=== PATIENT | female | born 1955 | race Caucasian/White ===

== ENCOUNTER 2017-11-02 19:14 | Emergency (ER) | payer OTHER, SELFPAY ==
[2017-11-02 19:16] VITALS: BP 142/69; PULSE 86; RESP 15; TEMP 37.2; O2SAT 99; BMI 25.6
--- NOTE | 2017-11-02 20:04 | CT_ITS ---
STUDY: CT ABDOMEN AND PELVIS WITHOUT CONTRAST REASON FOR EXAM: Female, 62 years old. Right flank pain for weeks. RADIATION DOSAGE (If Supplied By Facility): CTDIvol = ( 6.67 ) mGy, DLP = ( 299.88 ) mGycm TECHNIQUE: Transaxial images were obtained from the dome of the diaphragm to the symphysis pubis without oral contrast, and without intravenous contrast. Sagittal and coronal images were reconstructed. Individualized dose optimization techniques were used for this CT. COMPARISON: None. FINDINGS: The visualized lung bases are unremarkable. The visualized portions of the heart are within normal limits. Subcentimeter cyst of the medial superior right liver. Otherwise normal liver. There are surgical clips in the gallbladder fossa consistent with a prior cholecystectomy. Normal spleen. Normal pancreas. Mild compensatory dilatation of the common bile duct without visualized filling defect. Normal bilateral adrenal glands. Normal right kidney without hydronephrosis, renal or ureteral stones. Normal left kidney without hydronephrosis, renal, ureteral or bladder stones. Normal visualized stomach. Normal small intestine. Normal colon. The appendix is visualized and appears normal. Normal abdominal aorta. Normal inferior vena cava. Normal retroperitoneum. Nondistended urinary bladder. Negative for a discernible pelvic mass or free fluid of the pelvis. Normal abdominal wall. Normal osseous structures. CT/Abdomen/Pelvis without Cont IMPRESSION: Normal unenhanced CT of the abdomen and pelvis. Electronically Signed: Mini Javier MD at 20:42 EST , Service support ,
[2017-11-02 20:13] LABS: Absolute Lymphocyte Count 2.44 X10^3/ul (0.83-4.51); Absolute Neutrophil Count 4.4 X10^3/uL (2.0-7.7); Basophil# 0.02 X10^3/uL; Basophil% 0.3 % (0-1); Eosinophil# 0.02 X10^3/uL; Eosinophils% 0.3 % (0-5); Hematocrit 38.1 % (37-47); Hemoglobin 12.4 g/dl (12.0-15.0); Lymphocyte # 2.44 X10^3/ul (4.0); Lymphocyte % 31.2 % (19-41); Mean Corp Hgb Conc 32.5 g/gl (32-36); Mean Corpuscular Hgb 29.6 pg (27.0-32.0); Mean Corpuscular Volume 90.9 fL (81-99); Mean Platelet Vol. 11.6 fl (6.2-12.0); Monocyte# 0.89 X10^3/uL; Monocyte% 11.4 % (0-10); Neutrophil # 4.43 X10^3/uL (2.7-7.7); Neutrophil % 56.7 % (47-70); Platelet Count 277 K/mm3 (150-450); RBC Distribution Width CV 13.6 % (11.6-14.6); RBC Distribution Width SD 44.8 fl (35.1-43.9); Red Blood Count 4.19 M/mm3 (4.2-5.4); White Blood Count 7.8 K/mm3 (4.4-11.0)
[2017-11-02 20:14] LABS: POSITIVE COUNT NO; POSITIVE DIFFERENTIAL NO; POSITIVE MORPHOLOGY NO
[2017-11-02 20:22] LABS: Mucous, Urine 0 SEEN /hpf (<or=2+); Red Blood Cells-Urine 0 SEEN /hpf (0-5)
[2017-11-02] MEDS: 0.9% Normal Saline 1,000 ML 250 ML IV (20:30)
[2017-11-02 20:31] LABS: Anion Gap 8 (5-15); BUN 13 mg/dL (7-18); BUN/Creat Ratio 20.4 RATIO (10-20); Calcium,Total 8.9 mg/dL (8.5-10.1); Chloride 104 mmol/L (98-107); Creatinine, Serum 0.64 mg/dL (0.55-1.02); EST Glomerular Filtration Rate 100 mL/min (>60); Est Glom Filt Rate - Afr Amer 121 mL/min (>60); Estimated Creatinine Clearance 71.16 ml/min; Glucose 103 mg/dL (74-106); Potassium 3.4 mmol/L (3.5-5.1); Sodium Level 140 mmol/L (136-145)
[2017-11-02 21:07] LABS: Color, Urine Yellow (Yellow); Glucose, Dipstick Normal (Normal); Ketone-Dipstick Negative (Negative); Leukocyte Esterase-Dipstick Negative /ul (Negative); Nitrite-Dipstick Negative (Negative); Occult Blood-Urine 10 /ul (Negative); Protein-Dipstick Negative (Negative); Urine Bilirubin Dipstick Negative (Negative); Urine Clarity Clear (Clear); Urine Urobilinogen Normal (Normal)
--- NOTE | 2017-11-02 21:11 | NURSING ---
ACCEPTED TO DILEEP UNDER DR. MCDANIELS [id number] FOR REPORT
[2017-11-02 21:15] VITALS: BP 126/68; PULSE 83; RESP 16; O2SAT 98
[2017-11-02 21:32] LABS: Bacteria RARE /hpf (None Seen); Squamous Epithelial Cells - UA 0-5 SEEN /hpf (5-10); White Blood Cells 0-5 SEEN /hpf (0-5)
--- NOTE | 2017-11-02 22:03 | ED.VISSUMM ---
- ER Visit Summary Date of Service: 11/02/17 Chief Complaint: Right flank pain History of Present Illness: The patient is a [address] Mosqueda. She reports that she has right flank pain that began 3 weeks ago. It is a constant aching pain that is 8 out of 10 at worst and 7 out of 10 currently. Is worsened by nothing relieved by nothing. She denies any nausea or vomiting. No diarrhea. Her last bowel movement was today. She has had no melena or hematochezia. She has had frequent urination, but no dysuria or hematuria. States this is similar to when she has had a UTI. Patient reports that at the beginning this month she went to urgent care and had a urine culture obtained which was negative. They gave her Macrobid and she did not have any relief. Physical Examination: Vitals: Stable. Afebrile. General: Well-nourished and well-developed. Head: Normocephalic atraumatic. Neck: Supple, no lymphadenopathy. No JVD. Nontender. Cardiovascular: Regular rate and rhythm. No murmurs. Respiratory: No respiratory distress. Clear to auscultation bilaterally. Abdominal: Soft, nontender, nondistended, normal bowel sounds. No guarding, rebound, or peritoneal signs. Back: Nontender. Extremities: Nontender, no edema. Skin: Normal color, no rash. Neurologic: Alert and oriented ?3. Cranial nerves II through XII are intact. Normal strength and sensation. Psych: Normal affect. Test Results: CBC is remarkable for monocytes of 11. Chem-7 is marked potassium 3.4. CT flank shows no acute disease. Urinalysis is normal. Emergency Department Course and Treatment: Patient refused pain medications and is resting comfortably. Treatment Plan: Patient will be discharged instructions to follow-up with primary care physician in 3-5 days for further evaluation if not improving. Return to the emergency department for any worsening symptoms. Disposition: To home in improved and stable condition. Impression: 1. Right flank pain, uncertain cause. This note was generated with [employer] software. It may contain incorrect words, spelling, and punctuation that were not noted in review of the chart prior to signing ED Disposition - Plan for ED Patient: Disposition: Home or Assisted Living Chief Complaint: Abd Pain Instructions: ED Flank Pain Uncertain Cause Referrals: Adams Mosqueda MD [Primary Care Provider] - 3-5 Days if not improving
== END 2017-11-02 22:11 | disposition home or self-care (01) ==
LOC: ED 20:05
PROVIDERS: Emergency Provider Emergency Medicine; Family Provider Family Medicine; PCP Family Medicine
DX: R10.9 Unspecified abdominal pain (principal); R35.0 Frequency of micturition; Z87.440 Personal history of urinary (tract) infections; Z90.49 Acquired absence of other specified parts of digestive tract
CPT/HCPCS: 74176; 80048; 81001; 85025; 96360; 99283; J7030; A4216

== ENCOUNTER 2022-12-21 09:00 | Outpatient (RCR) | payer MEDICARE, SELFPAY ==
--- NOTE | 2022-07-12 13:05 | HP.PTEVAL_ITS ---
Patient's Visit Information CHARLEEN JIMENEZ is a 66 year old F referred to Physical Therapy by Dr. More Reyes MD with a diagnosis of PELVIC PAIN. Date of Evaluation: 07/05/22 Physical Therapist: Gabriela Valerio PT, Cert MDT - Visit Plan Frequency: 1x/Week Duration: 8-10 WKS Plan: INSTRUCT IN DIAPHRAGMATIC BREATHING, QUICK FLICK KEGELS AND DIOGO HIP ADDUCTOR STRETCHING NEXT VISIT. MANUAL PF THERAPY FOR STRENGTHENING, LENGTHENING/RELAXATION AND ENDURANCE TRAINING. TRAINING IN COORDINATION OF PELVIC FLOOR MUSCULATURE WITH CORE (TRANSVERSE ABDOMINUS) AND HIP STRENGTHENING. TRAINING IN ABDOMINAL CAVITY PRESSURE MGMT WITH ADL'S. DIOGO HIP ROM/STRETCHING. - Subjective Work/Leisure: RETIRED. WALKS ABOUT 2 MILES 5 DAYS A WK. ACTIVE WITH THINGS LIKE MOWING AND WEED EATING. Present symptoms: PATIENT REPORTS SHE IS HAVING DISCOMFORT AND BURNING IN THE VAGINAL AREA. SOME DAYS ARE WORSE THAN OTHERS. DENIES URINARY LEAKING. NO LOW BACK PAIN. DENIES DIOGO LE PAIN, NUMBNESS, TINGLING OR WEAKNESS. PATIENT REPORTS DR. REYES SAID HER VAGINA IS REALLY TIGHT AND CONTRIBUTING TO HER PROBLEMS. PATIENT REPORTS SHE CURRENTLY DOES NOT HAVE ANY INFECTION AND AT HER LAST VISIT WITH DR. REYES THIS MONTH HER URINALYSIS LOOKED REALLY GOOD. Present since: ABOUT FEBRUARY 2022. Pain Scale: WORST 7/10, LEAST 1/10. Currently: 4/10. Is it getting better, worse or staying the same: GETTING BETTER. Commenced as a result of: NO APPARENT REASON. PATIENT REPORTS SHE THOUGHT IT WAS A UTI IN THE BEGINNING BUT IT WASN'T CONFIRMED. TRIED ANTIBIOTIC BUT DID NOT HELP SYMPTOMES. PATIENT REPORTS SHE WAS EVENTUALLY DX'S WITH UTI AND INFECTION IN THE LYING OF HER UTERUS. SHE REPORTS SHE WAS TOLD THAT HER SX'S WERE BEING CAUSED BY HORMONAL ISSUES. Symptoms at onset: SAME. Worse: TIGHT PANTS, WALKING, WIPING TOO HARD. Better: DRINKING A LOT OF WATER AND URINATING A LOT, HEAT, GEMTESSA X 4 WKS THEN STOPPED BECAUSE DOING BETTER BUT HAS PRESCRIPTION AND CAN RESUME IF SHE WANTS TO. TRIED HORMONAL CREAM BUT SEEMED TO CAUSE ITCHING AND STOPPED IT. SPECIAL PRESCRIPTION CREAM JUST STARTED AND ISN'T SURE IF IT IS HELPING YET OR NOT. Disturbed sleep: NO. Previous history/Previous treatment: H/O A LOT OF UTI. Coughing/sneezing/stra ining: NEGATIVE. DENIES URINARY LEAKING. Gait: NORMAL. SOMETIMES GETS IRRITATION WALKING WITH TIGHT LEGGINGS. Bowel or Bladder Dysfunction: PATIENT DENIES. Accidents: NO. Unexplained weight loss: NO. Imagin UROLOGIST CONSULTS. URINALYSIS. NO BLOODWORK. TESTED BLADDER EMPTYING AND THAT LOOKED GOOD PER PATIENT REPORT. NO X-RAYS. PMH/Recent major surgery: UNREMARKABLE - Objective Sitting/Standing Posture: FAIR. NO RELEVENT LATERAL LUMBAR SHIFT. NORMAL LORDOSIS. Active Correction of posture: NE. Other Observations: INDEP GAIT AND TRANSFERS WITH NO GROSS DEVIATIONS NOTED. Sensory deficit: DIOGO LE LIGHT TOUCH SENSATION GROSSLY INTACT AND SYMMETRICAL. ROM deficit: TIGHT DIOGO HIP ADDUCTORS. Motor deficit: DIOGO LE'S GROSSLY 5/5 WITH MMT'ING EXCEPT HIPS 4/5. Dural Signs: NEGATIVE DIOGO LE'S. Lumbar mvmt loss: flex - MIN. ext - MIN. R SG - MIN. L SG - MIN. PATIENT DENIES PAIN WITH LUMBAR ROM TESTING ALL PLANES. Core strength: POOR. Palpation: DIGITAL VAGINAL PELVIC EXAM REVEALS PELVIC FLOOR TIGHTNESS AND WEAKNESS GRADED 3/5 X 4 SEC X 3 REPS. NO INTERNAL PELVIC FLOOR OR EXTERNAL PELVIC TENDERNESS. PATIENT TOLERATED EXAM WELL. - Goals Goal 1:: DECREASE C/O PELVIC PAIN Goal Time Frame: 6-8 Weeks Goal 2:: IMPROVE WALKING AND ADL FUNCTION Goal Time Frame: 6-8 Weeks Goal 3:: PATIENT WILL HAVE INCREASED PELVIC FLOOR MUSCLE STRENGTH GRADE TO 5/5 Goal Time Frame: 6-8 Weeks Goal 4:: PATIENT WILL DEMONSTRATE 10 CONSISTENT AND CONSECUTIVE 10 SECOND PELVIC FLOOR MUSCLE CONTRACTIONS TO DEMONSTRATE IMPROVED PELVIC FLOOR ENDURANCE. Goal Time Frame: 6-8 Weeks Goal 5:: INCREASE HIP AND PF ROM. Goal Time Frame: 4-6 Weeks Goal 6:: PATIENT WILL BE INDEP WITH A HOME PROGRAM FOR CONTINUED IMPROVEMENT ONCE FORMAL PHYSICAL THERPAY CONCLUDES. Goal Time Frame: 6-8 Weeks - Anticipated Interventions Patient/Client Instruction: Educate patient on: Condition, Plan of Care, Risk Factors For the Purpose of:: To improve self management Therapeutic Exercise to Include: Strength training, Endurance training, Coordination, Flexibilty training For the Purpose of:: To decrease pain, To increase ROM, To improve muscle performance and motor function, To increase tolerance to activity/condition/position, To improve ability of physical actions for home/community/work/leisure, To improve gait and locomotor functions Manual Therapy Techniques to Include: Soft tissue mobilization, Other Comment: BIOFEEDBACK For the Purpose of:: To decrease pain, To increase ROM, To improve nutrient delivery to tissue, To improve muscle performance and motor function Thank you for the opportunity to evaluate your patient. For Medicare and Medicare HMO plans, please review the plan of care and approve it. It will need to be FAXED BACK to us at [phone] for Medicare purposes. For Medicare only, by signing this I certify the plan of care. Please let me know if there are questions or concerns regarding this plan of care. Physician Signature: Date:
--- NOTE | 2022-11-16 10:17 | HP.PTREVAL ---
Dr. More Cassidy MD, It has been my pleasure to treat CHARLEEN JIMENEZ over the last 15 visits for PELVIC PAIN. Please see the progress note below for an update on the physical therapy plan of care! Subjective: PATIENT REPORTS HAVING SOME DISCOMFORT AFTER LAST VISIT BUT IT DOESN'T LINGER AND SEEMS HELPFUL OVER-ALL. IT HAS REALLY IMPROVED. I CAN SLEEP ALL NIGHT AND GO TO THE RESTROOM WITHOUT IT PUTTING ME IN TEARS. PATIENT REPORTS SHE CAN'T GO A WHOLE DAY WITHOUT GETTING AN IRRIATION OR MILD BURNING FEELING BUT SOMETIMES CLOSE TO ALL DAY. STATES SHE ORDERED A PELVIC WAND. STATES SHE HASN'T EVEN HAD TO USE THE HEATING PAD SINCE LAST VISIT AND THAT IS AN IMPROVEMENT. ALTHOUGH THE MANUAL THERAPY SEEMS TO BE HELPING SHE IS REQUESTING TO defer or minimize TREATMENT TODAY DUE TO WAKING UP WITH A queasy STOMACH. Not using any medication for this. Objective/Function: Patient continues to require some cueing to perform ex's correctly so further written instructions provided. Patient tolerated all ex's well today and able to perform correctly after cueing. HEP mainly consists of stretching plus core stability. Plan Plan: PROGRESS CORE STRENGTH AND STABILITY TOLERATED. CONTINUE PER POC WITH FOCUS ON MANUAL PF THERAPY FOR LENGTHENING/RELAXATION. PATIENT AGREEABLE. RETURN TO DOCTOR IF NOT IMPROVING. Goals Goal 1:: DECREASE C/O PELVIC PAIN Goal Time Frame: 6-8 Weeks Goal Progress: Progressing Goal 2:: IMPROVE WALKING AND ADL FUNCTION Goal Time Frame: 6-8 Weeks Goal Progress: Progressing Goal 3:: PATIENT WILL HAVE INCREASED PELVIC FLOOR MUSCLE STRENGTH GRADE TO 5/5 Goal Time Frame: 6-8 Weeks Goal 4:: PATIENT WILL DEMONSTRATE 10 CONSISTENT AND CONSECUTIVE 10 SECOND PELVIC FLOOR MUSCLE CONTRACTIONS TO DEMONSTRATE IMPROVED PELVIC FLOOR ENDURANCE. Goal Time Frame: 6-8 Weeks Goal 5:: INCREASE HIP AND PF ROM. Goal Time Frame: 4-6 Weeks Goal Progress: Progressing Goal 6:: PATIENT WILL BE INDEP WITH A HOME PROGRAM FOR CONTINUED IMPROVEMENT ONCE FORMAL PHYSICAL THERPAY CONCLUDES. Goal Time Frame: 6-8 Weeks Goal Progress: Progressing Anticipated Interventions Patient/Client Instruction: Educate patient on: Condition, Plan of Care, Risk Factors For the Purpose of:: To improve self management Therapeutic Exercise to Include: Strength training, Endurance training, Coordination, Flexibilty training For the Purpose of:: To decrease pain, To increase ROM, To improve muscle performance and motor function, To increase tolerance to activity/condition/position, To improve ability of physical actions for home/community/work/leisure, To improve gait and locomotor functions Manual Therapy Techniques to Include: Soft tissue mobilization, Other Comment: BIOFEEDBACK For the Purpose of:: To decrease pain, To increase ROM, To improve nutrient delivery to tissue, To improve muscle performance and motor function Please do not hesitate to contact me at [phone] by phone or if you have questions or concerns regarding this new plan of care! Sincerely, Gabriela Valerio, PT, Cert MDT
--- NOTE | 2022-12-21 09:36 | HP.PTDCSUM ---
It has been my pleasure to treat CHARLEEN JIMENEZ referred by Dr. More Cassidy MD, with the diagnosis of PELVIC PAIN for a total of 18 visit(s). Discharge Date: Please see the following information for a summary of their discharge status. Subjective: PATIENT REPORTS SHE IS DOING BETTER. STATES SHE HAS BEEN REALLY CONCENTRATING ON HER EX'S AND HAS USED THE WAND A FEW TIMES. THERE ARE DAYS THAT THERE IS NO PAIN. PATIENT REPORTS INCREASED IRRITATION IN PELVIC AREA AFTER LAST SESSION FOR A DAY AND 1/2. ALSO REPORTS GETTING IRRITATION WITH SELF USE OF THE WAND TOO. PATIENT REPORTS SHE IS NOT USING THE CREAM YET. PATIENT REPORTS SHE FEELS SHE CAN DECREASE TO ONCE A MONTH WITH THERAPY OR CONTINUE ON HER OWN. PATIENT REPORTS SHE IS PLANNING TO START MASSAGE THERAPY AND [employer]OGA TOO. PATIENT REPORTS SHE WANTS TO KEEP USING THE WAND BECAUSE SHE DOES FEEL RELIEF A FEW DAYS DOWN THE ROAD. PF Pain Intensity (Out of 10): 3 LOW BACK Pain Intensity (Out of 10): 0 % Improvement: 85 Objective/Function: INDEP HEP AND PELVIC FLOOR TRIGGER POINT TREATMENT. Goal 1:: DECREASE C/O PELVIC PAIN Goal Progress: Goal Met Goal 2:: IMPROVE WALKING AND ADL FUNCTION Goal Progress: Goal Met Goal 3:: PATIENT WILL HAVE INCREASED PELVIC FLOOR MUSCLE STRENGTH GRADE TO 5/5 Goal Progress: NT Goal 4:: PATIENT WILL DEMONSTRATE 10 CONSISTENT AND CONSECUTIVE 10 SECOND PELVIC FLOOR MUSCLE CONTRACTIONS TO DEMONSTRATE IMPROVED PELVIC FLOOR ENDURANCE. Goal Progress: NT Goal 5:: INCREASE HIP AND PF ROM. Goal Progress: Goal Met Goal 6:: PATIENT WILL BE INDEP WITH A HOME PROGRAM FOR CONTINUED IMPROVEMENT ONCE FORMAL PHYSICAL THERPAY CONCLUDES. Goal Progress: Goal Met Plan: D/C If there are questions or concerns regarding this patient's physical therapy, please feel free to call me at [phone]. Thank you for the referral of this patient. Sincerely, Gabriela Valerio, PT, Cert MDT
== END 2022-12-21 19:00 | disposition home or self-care (01) ==
LOC: PT 09:00
PROVIDERS: PCP Family Medicine; Referring Provider Urology; Visit Provider Urology
DX: R10.2 Pelvic and perineal pain (principal)
CPT/HCPCS: 97140; 97162; 97530